=== PATIENT | male | born 1955 | race Caucasian/White ===

== ENCOUNTER → 2016-07-03 | Outpatient (CLI) | payer OTHER ==
[~2016-07-03] MED LIST: IOHEXOL 300 MG/ML 75 ML VIAL. IV ONE
--- NOTE | 2016-07-03 12:47 | RAD ---
Indication renal mass suggested on ultrasound Multiphase CT through the abdomen and pelvis was performed. Initially noncontrast imaging through the kidneys was performed. This was followed by portal venous phase imaging through the kidneys and finally delayed images through the abdomen and pelvis. Approximately 75 cc of Omnipaque 300 was administered intravenously. No oral contrast was administered. Note is made of the ultrasound examination one week earlier suggesting a possible right renal mass. On the initial noncontrast images of the kidneys no significant anomaly is seen. There is a minute left renal calculus. On the portal venous phase imaging no hypervascular mass is seen associated with either kidney. There is a small subcentimeter cyst associated with the right kidney and additional cysts (2) associated with the left, each measuring approximately 2 cm. The delayed images demonstrate similar findings. A solid mass is not seen associated with either kidney. (The findings on the ultrasound may have been reflective of a dromedary hump associated with the right kidney). The ureters appear unremarkable. The urinary bladder appears grossly normal. There is a 3 mm pleural-based nodule at the left lung base, image 11 series 2. An additional peripheral nodule is seen in the lingula image 11. It measures also approximately 3 mm. Follow-up imaging along the lines of the Fleischner criteria should be considered. An acute finding in either lung base is not seen. On the portal venous phase images there is a hypervascular 15 mm mass in the left lobe of the liver. This probably reflects a flash hemangioma. Also in the left lobe there is a 3 to 4 mm low-density mass likely reflecting a cyst. A definite significant finding in the liver is not seen. The gallbladder appears grossly normal. The spleen is unremarkable. No pancreatic pathology or adrenal pathology is seen. Acute finding in the abdomen is not seen. In the pelvis focal mass or inflammatory process is not seen. Multiple diverticula are seen in the large bowel most pronounced in the sigmoid colon. Active inflammation is not seen. There are degenerative changes in the lumbar spine. There is a probable transitional lumbar segment. IMPRESSION: No acute finding seen in the abdomen or pelvis. No solid mass seen associated with either kidney. There are small masses seen associated with both kidneys compatible with cysts. Small hepatic cyst. Small hypervascular mass in the left lobe of the liver likely reflecting a flash hemangioma. Moderately extensive sigmoid diverticulosis 2 small pulmonary nodules at the left lung base. Follow-up imaging along the lines of the Fleischner criteria should be considered. Nodules detected incidentally at non-screening CT Nodule size (mm) less than or equal to 4 Low Risk patients- no follow-up needed High Risk patients- follow-up at 12 months and if no change, no further imaging needed. Nodule size > 4-6 mm Low risk patients- follow- up at 12 months and if no change, no further imaging needed High risk patients- initial follow-up CT at 6-12 months and then at 18-24 months if no change. Nodule Size > 6-8 mm Low risk patients- initial follow-up CT at 6-12 months and then at 18-24 months if no change. High risk patients- initial follow- up CT at 3-6 months and then at 9-12 months if no change, Nodule Size >8 mm Either low or high risk patients: Follow-up CT at around 3, 9 and [address], PET, and/or biopsy Note: newly detected indeterminate nodule in person 35 years of age or older. Low risk patients- minimal or absent history of smoking and/or other known risk factors. High risk patients- history of smoking or of other known risk factors. PQRS Compliance Statement: One or more of the following individualized dose reduction techniques were utilized for this examination: 1. Automated exposure control 2. Adjustment of the mA and/or kV according to patient size 3. Use of iterative reconstruction technique
== END | disposition home or self-care (01) ==
LOC: CT 11:05
PROVIDERS: ATTEND Physician Assistant
DX: N28.89 Other specified disorders of kidney and ureter (principal); I10 Essential (primary) hypertension; Z87.891 Personal history of nicotine dependence
CPT/HCPCS: 74174; Q9967